=== PATIENT | female | born 1945 | race Caucasian/White ===

== ENCOUNTER 2022-10-26 18:27 | Inpatient (IN) ==
[2022-10-26] MEDS ORDERED: Iodixanol (CONTRAST) 320 MG/ML 100 ML SDV IV ONE (18:42)
[2022-10-26 19:09] LABS: Activated Partial Thrombo Time 26.6 seconds (26.0-38.0); INR 1.15 (0.88-1.18)
[2022-10-26 19:13] LABS: ABS Basophils 0.1 10^3/uL (0.0-0.1); ABS Eosinophils 0.4 10^3/uL (0.0-0.5); ABS Lymphocytes 2.4 10^3/uL (1.0-4.8); ABS Monocytes 1.2 10^3/uL (0.0-0.9); ABS Neutrophils 5.2 10^3/uL (1.5-7.6); ABS Nucleated RBC 0.01 10^3/ul; Eosinophil % 4.2 %; Hematocrit 25.1 % (35-45); Hemoglobin 7.8 g/dL (11.5-14.3); Lymphocyte % 25.7 %; Mean Corpuscular Hemoglobin 20.6 pg (27-33); Mean Corpuscular Hgb Conc 30.9 g/dL (31-36); Mean Corpuscular Volume 66.6 fL (80-97); Mean Platelet Volume 6.8 fL (7.5-11.2); Nucleated Red Blood Cells % 0.1 /100 WBC (0.0-0.4); Platelet Count 409 10^3/uL (150-450); Red Blood Count 3.76 10^6/uL (3.63-4.92); Red Cell Distribution Width 21.6 % (12-17); White Blood Count 9.3 10^3/uL (3.8-11.8)
[2022-10-26 19:28] LABS: Albumin 3.6 g/dL (3.2-5.2); Albumin/Globulin Ratio 1.1 (1-3); Calcium 8.7 mg/dL (8.6-10.3); Creatinine, Serum 1.02 mg/dL (0.51-0.95); Globulin 3.2 g/dL (2-4); HDL Cholesterol 28.6 mg/dL; Total Bilirubin 0.6 mg/dL (0.2-1.0); Total Protein 6.8 g/dL (6.4-8.9); eGFR CKD-EPI 57.4 (>60)
[2022-10-26 19:49] LABS: Anisocytosis 3+
[2022-10-26 19:50] LABS: Microcytosis 3+; Polychromasia 1+
[2022-10-26 19:52] LABS: Hypochromasia 1+
[2022-10-26] MEDS ORDERED: Pantoprazole VIAL 40 MG VIAL IV ONE (20:26)
[2022-10-26] MEDS ORDERED: Pantoprazole 80 mg in NS BAG 80 MG/250 ML BAG IV ONE (20:26)
[2022-10-26] MEDS ORDERED: Dextrose 50% Syringe 50 ml 25 GM/50 ML SYRINGE IV PUSH PRN (23:38)
[2022-10-27 06:48] LABS: Hematocrit 30.1 % (35-45); Hemoglobin 9.2 g/dL (11.5-14.3); Mean Corpuscular Hgb Conc 30.6 g/dL (31-36); Mean Corpuscular Volume 68.5 fL (80-97); Platelet Count 410 10^3/uL (150-450); Red Blood Count 4.39 10^6/uL (3.63-4.92); Red Cell Distribution Width 23.1 % (12-17); White Blood Count 8.8 10^3/uL (3.8-11.8)
[2022-10-27 06:52] LABS: Calcium 8.7 mg/dL (8.6-10.3); Creatinine, Serum 0.84 mg/dL (0.51-0.95); Magnesium 1.7 mg/dL (1.9-2.7); Potassium 3.8 mmol/L (3.5-5.0); eGFR CKD-EPI 72.4 (>60)
[2022-10-27 07:08] LABS: ABS Eosinophils 0.3 10^3/uL (0.0-0.5); ABS Lymphocytes 1.6 10^3/uL (1.0-4.8); ABS Monocytes 0.9 10^3/uL (0.0-0.9); ABS Neutrophils 5.9 10^3/uL (1.5-7.6); ABS Nucleated RBC 0.01 10^3/ul; Eosinophil % 3.6 %; Lymphocyte % 17.9 %; Nucleated Red Blood Cells % 0.1 /100 WBC (0.0-0.4)
[2022-10-27] MEDS ORDERED: LORazepam 2 mg VIAL 1 ml IV PUSH ONE (08:49)
[2022-10-27] MEDS ORDERED: Lorazepam PYXIS KEY PRN (08:49)
[2022-10-27] MEDS: Pantoprazole VIAL 40 MG VIAL IV SCH ×2 (10:43→21:53)
[2022-10-27 14:57] LABS: Hematocrit 30.9 % (35-45); Hemoglobin 9.3 g/dL (11.5-14.3); Mean Corpuscular Hemoglobin 20.4 pg (27-33); Mean Corpuscular Volume 68.1 fL (80-97); Mean Platelet Volume 6.8 fL (7.5-11.2); Platelet Count 455 10^3/uL (150-450); Red Blood Count 4.54 10^6/uL (3.63-4.92); Red Cell Distribution Width 23.3 % (12-17)
[2022-10-27] MEDS ORDERED: Magnesium Sulfate 2 gm BAG 2 GM/50 ML BAG IVPB ONE (15:28)
[2022-10-27 23:32] LABS: ABS Basophils 0.1 10^3/uL (0.0-0.1); ABS Eosinophils 0.7 10^3/uL (0.0-0.5); ABS Lymphocytes 1.8 10^3/uL (1.0-4.8); ABS Monocytes 1.1 10^3/uL (0.0-0.9); ABS Neutrophils 7.6 10^3/uL (1.5-7.6); ABS Nucleated RBC 0.01 10^3/ul; Eosinophil % 6.1 %; Hematocrit 27.5 % (35-45); Hemoglobin 8.4 g/dL (11.5-14.3); Lymphocyte % 15.7 %; Mean Corpuscular Hemoglobin 20.7 pg (27-33); Mean Corpuscular Hgb Conc 30.7 g/dL (31-36); Mean Corpuscular Volume 67.4 fL (80-97); Mean Platelet Volume 6.9 fL (7.5-11.2); Nucleated Red Blood Cells % 0.1 /100 WBC (0.0-0.4); Platelet Count 387 10^3/uL (150-450); Red Blood Count 4.08 10^6/uL (3.63-4.92); White Blood Count 11.3 10^3/uL (3.8-11.8)
[2022-10-28 06:31] LABS: ABS Lymphocytes 1.6 10^3/uL (1.0-4.8); ABS Monocytes 1.1 10^3/uL (0.0-0.9); ABS Nucleated RBC 0.01 10^3/ul; Eosinophil % 9.5 %; Hematocrit 28.8 % (35-45); Hemoglobin 8.8 g/dL (11.5-14.3); Lymphocyte % 15.1 %; Mean Corpuscular Hemoglobin 20.9 pg (27-33); Mean Corpuscular Hgb Conc 30.7 g/dL (31-36); Nucleated Red Blood Cells % 0.1 /100 WBC (0.0-0.4); Platelet Count 405 10^3/uL (150-450); Red Blood Count 4.23 10^6/uL (3.63-4.92); Red Cell Distribution Width 23.1 % (12-17); White Blood Count 10.8 10^3/uL (3.8-11.8)
[2022-10-28 06:43] LABS: Calcium 8.8 mg/dL (8.6-10.3); Creatinine, Serum 0.83 mg/dL (0.51-0.95); Potassium 3.9 mmol/L (3.5-5.0); eGFR CKD-EPI 73.5 (>60)
[2022-10-28] MEDS: Pantoprazole VIAL 40 MG VIAL IV SCH ×2 (09:11→21:09)
[2022-10-28] MEDS ORDERED: Docusate LIQ 100 MG/10 ML UDC PO PRN (18:00)
[2022-10-28 18:35] LABS: Hematocrit 28.9 % (35-45); Hemoglobin 8.8 g/dL (11.5-14.3)
[2022-10-29 05:50] LABS: ABS Basophils 0.1 10^3/uL (0.0-0.1); ABS Eosinophils 1.4 10^3/uL (0.0-0.5); ABS Lymphocytes 1.6 10^3/uL (1.0-4.8); ABS Monocytes 0.9 10^3/uL (0.0-0.9); ABS Neutrophils 6.8 10^3/uL (1.5-7.6); ABS Nucleated RBC 0.01 10^3/ul; Eosinophil % 12.9 %; Hemoglobin 8.7 g/dL (11.5-14.3); Lymphocyte % 15.2 %; Mean Corpuscular Hemoglobin 20.9 pg (27-33); Mean Corpuscular Hgb Conc 30.9 g/dL (31-36); Mean Corpuscular Volume 67.8 fL (80-97); Mean Platelet Volume 7.4 fL (7.5-11.2); Nucleated Red Blood Cells % 0.1 /100 WBC (0.0-0.4); Platelet Count 395 10^3/uL (150-450); Red Blood Count 4.13 10^6/uL (3.63-4.92); Red Cell Distribution Width 23.5 % (12-17); White Blood Count 10.7 10^3/uL (3.8-11.8)
[2022-10-29] MEDS: Pantoprazole VIAL 40 MG VIAL IV SCH (09:03)
[2022-10-29 15:12] VITALS: BP 118/37
== END 2022-10-29 15:46 | disposition home or self-care (01) | DRG 65 ==
LOC: EDHOLD 18:27 → ED 18:27 → SUATTDRO 20:56 → MEDTELE 23:53
PROVIDERS: ADMIT Internal Medicine; ATTEND Internal Medicine

== ENCOUNTER 2023-10-07 15:47 | Inpatient (IN) ==
[2023-10-07 16:22] LABS: Hematocrit 24.9 % (35-45); Hemoglobin 7.2 g/dL (11.5-14.3); Mean Corpuscular Hemoglobin 18.1 pg (27-33); Mean Corpuscular Hgb Conc 28.7 g/dL (31-36); Mean Corpuscular Volume 63.1 fL (80-97); Mean Platelet Volume 8.4 fL (7.5-11.2); Platelet Count 407 10^3/uL (150-450); Red Blood Count 3.96 10^6/uL (3.63-4.92); Red Cell Distribution Width 21.7 % (12-17); White Blood Count 13.1 10^3/uL (3.8-11.8)
[2023-10-07 16:32] LABS: INR 1.4 (0.83-1.13)
[2023-10-07 16:47] LABS: Albumin 3.7 g/dL (3.2-5.2); Albumin/Globulin Ratio 1.4 (1-3); C Reactive Protein 22.58 mg/L (<8.01); Calcium 8.8 mg/dL (8.6-10.3); Creatinine, Serum 1.73 mg/dL (0.51-0.95); Globulin 2.6 g/dL (2-4); Potassium 5.4 mmol/L (3.5-5.0); Total Bilirubin 1.5 mg/dL (0.2-1.0); Total Protein 6.3 g/dL (6.4-8.9); eGFR CKD-EPI 30.2 (>60)
[2023-10-07 17:11] LABS: ABS Basophils 0.1 10^3/uL (0.0-0.1); ABS Monocytes 0.8 10^3/uL (0.0-0.9); ABS Neutrophils 11.3 10^3/uL (1.5-7.6); ABS Nucleated RBC 0.04 10^3/ul; Acanthocytes 1+; Anisocytosis 2+; Hypochromasia 1+; Lymphocyte % 7.5 %; Microcytosis 3+; Nucleated Red Blood Cells % 0.3 %/100WBC (0.0-0.8); Polychromasia 1+
[2023-10-07] MEDS: Lactated Ringers 1000 ml BAG 1,000 ML IV ONE (17:14)
[2023-10-07 17:41] LABS: High Sensitivity Troponin 1 Hr 87 pg/mL (<15)
[2023-10-07 17:44] LABS: PCO2 Arterial 26 mmHg (35-45); PO2 Arterial 115 mmHg (80-100)
[2023-10-07] MEDS: Piperacillin/Tazobac 3.375 BAG 3.375 GM/100 ML BAG IV ONE (18:48)
[2023-10-07] MEDS: Vancomycin 1,000 MG in NS 0.9% 250 ml 250 ML IVPB ONE (19:14)
[2023-10-07 19:32] LABS: Urine Appearance Turbid; Urine Bacteria 3+ /HPF (Absent); Urine Bilirubin Negative (Negative); Urine Blood 1+ (Negative); Urine Color Yellow; Urine Glucose 4+ (>=1000 mg/dL) (Negative); Urine Ketones Negative (Negative); Urine Nitrite 1+ (Negative); Urine Protein 1+ (>=30 mg/dL) (Negative); Urine Red Blood Cell 3+(>10/hpf) /HPF (0-Trace); Urine Squamous Epithelial Cell Present /HPF (Absent); Urine Urobilinogen Negative (Negative); Urine White Blood Cell 3+(>20/hpf) /HPF (0-Trace); Urine pH 5.5 (5.0-8.0)
[2023-10-07] MEDS: Iodixanol (CONTRAST) 320 MG/ML 100 ML SDV IV ONE (19:55)
[2023-10-07] MEDS ORDERED: Dextrose 50% Syringe 50 ml 25 GM/50 ML SYRINGE IV PUSH PRN ×2 (20:58→22:16)
[2023-10-07] MEDS: Heparin 5000 UNITS/ML 1 mL VIAL IV SCH (21:01)
[2023-10-07] MEDS: Heparin DRIP 25,000 UNITS BAG 25,000 UNITS/250 ML BAG IV SCH (21:03)
[2023-10-07 21:32] LABS: Glucose Confirmatory 414 mg/dL (70-100)
[2023-10-07] MEDS: Insulin GLARGINE 100 un/ml 10 ml VIAL SUBCUT ONE ×2 (21:48→23:19)
[2023-10-07] MEDS: Pantoprazole VIAL 40 MG VIAL IV ONE (21:48)
[2023-10-07] MEDS ORDERED: Pantoprazole VIAL 40 MG VIAL ONE (21:50)
[2023-10-07] MEDS: Pantoprazole 80 mg in NS BAG 80 MG/250 ML BAG IV SCH (21:55)
[2023-10-07] MEDS ORDERED: Al Hydrox/Mg Hydrox/Simet LIQ 30 ML UDC PO PRN (22:19)
[2023-10-07] MEDS: cefTRIAXone 1 gm/50 mL D5W 1 GM/50 ML BAG IV SCH (23:20)
[2023-10-08] MEDS: NS 0.9% 500 ml BAG 500 ML IV ONE (03:52)
[2023-10-08] MEDS: NS 0.9% 1000 ml BAG 1,000 ML IV SCH (04:26)
[2023-10-08 05:09] LABS: ABS Basophils 0.1 10^3/uL (0.0-0.1); ABS Eosinophils 0.1 10^3/uL (0.0-0.5); ABS Lymphocytes 2.1 10^3/uL (1.0-4.8); ABS Monocytes 1.3 10^3/uL (0.0-0.9); ABS Neutrophils 11.5 10^3/uL (1.5-7.6); ABS Nucleated RBC 0.11 10^3/ul; Eosinophil % 0.5 %; Hematocrit 24.5 % (35-45); Hemoglobin 7.2 g/dL (11.5-14.3); Lymphocyte % 14.1 %; Mean Corpuscular Hemoglobin 18.8 pg (27-33); Mean Corpuscular Hgb Conc 29.4 g/dL (31-36); Mean Corpuscular Volume 63.8 fL (80-97); Mean Platelet Volume 8.4 fL (7.5-11.2); Nucleated Red Blood Cells % 0.7 %/100WBC (0.0-0.8); Platelet Count 344 10^3/uL (150-450); Red Blood Count 3.85 10^6/uL (3.63-4.92); Red Cell Distribution Width 22.8 % (12-17); White Blood Count 15.1 10^3/uL (3.8-11.8)
[2023-10-08] MEDS: Nystatin TOP POWDER 15 GM BTL TOPICAL SCH (09:25)
[2023-10-08] MEDS ORDERED: Sulfur Hexaflouride MICROSPHR 25 MG VIAL ONE ×2 (10:33→12:42)
[2023-10-08 11:49] LABS: Anion Gap 10 mmol/L (2-16); Blood Urea Nitrogen 26 mg/dL (6-24); CO2 Carbon Dioxide 21 mmol/L (22-32); Calcium 7.9 mg/dL (8.6-10.3); Chloride 104 mmol/L (101-111); Glucose 150 mg/dL (70-100); Potassium 4.1 mmol/L (3.5-5.0); Sodium 135 mmol/L (135-145)
[2023-10-08] MEDS: Sulfur Hexaflouride MICROSPHR 25 MG VIAL IV ONE (12:27)
[2023-10-08 12:29] LABS: % Iron Saturation 6 % (15-55); .Transferrin 259 mg/dL (203-362); Iron < 20 ug/dL (50-212); Total Iron Binding Capacity 363 mcg/dL (250-450); Unsaturated Iron Binding 343 ug/dL
[2023-10-08 12:58] LABS: TSH Ultra Thyroid Stim Horm 1.53 mcIU/mL (0.34-5.60)
[2023-10-08] MEDS: Metoclopramide LIQUID 1 mg/ml 10 ml ORAL.SOLN (10 mg) PO SCH (13:49)
[2023-10-08] MEDS: Ferric Gluconate IV 250 MG in NS 0.9% 250 ml 200 ML IVPB SCH (19:28)
[2023-10-08] MEDS: Insulin GLARGINE 100 un/ml 10 ml VIAL SUBCUT SCH (20:41)
[2023-10-08 21:33] LABS: CRP High Sensitivity 21.62 mg/L (<2.00)
[2023-10-09 05:53] LABS: ABS Basophils 0.1 10^3/uL (0.0-0.1); ABS Eosinophils 0.6 10^3/uL (0.0-0.5); ABS Lymphocytes 1.9 10^3/uL (1.0-4.8); ABS Monocytes 1.3 10^3/uL (0.0-0.9); ABS Nucleated RBC 0.07 10^3/ul; Hematocrit 26.2 % (35-45); Hemoglobin 7.7 g/dL (11.5-14.3); Lymphocyte % 13.8 %; Mean Corpuscular Hemoglobin 19.1 pg (27-33); Mean Corpuscular Hgb Conc 29.4 g/dL (31-36); Mean Corpuscular Volume 64.9 fL (80-97); Mean Platelet Volume 8.3 fL (7.5-11.2); Nucleated Red Blood Cells % 0.5 %/100WBC (0.0-0.8); Platelet Count 298 10^3/uL (150-450); Red Blood Count 4.03 10^6/uL (3.63-4.92); Red Cell Distribution Width 23.5 % (12-17); White Blood Count 13.9 10^3/uL (3.8-11.8)
[2023-10-09 06:12] LABS: Calcium 8.2 mg/dL (8.6-10.3); Creatinine, Serum 1.29 mg/dL (0.51-0.95); Magnesium 1.8 mg/dL (1.9-2.7); Potassium 4.5 mmol/L (3.5-5.0)
[2023-10-09] MEDS: Magnesium Sulfate 2 gm BAG 2 GM/50 ML BAG IVPB ONE (09:45)
[2023-10-10 06:59] LABS: Calcium 8.2 mg/dL (8.6-10.3); Creatinine, Serum 1.05 mg/dL (0.51-0.95); Potassium 4.3 mmol/L (3.5-5.0); eGFR CKD-EPI 55.1 (>60)
[2023-10-10] MEDS: Iodixanol (CONTRAST) 320 MG/ML 100 ML SDV IV ONE (15:13)
[2023-10-10] MEDS: NS 0.9% 1000 ml BAG 1,000 ML IV SCH (16:19)
[2023-10-11 05:57] LABS: Calcium 8.8 mg/dL (8.6-10.3); Creatinine, Serum 0.93 mg/dL (0.51-0.95); Magnesium 1.9 mg/dL (1.9-2.7); Potassium 4.4 mmol/L (3.5-5.0); eGFR CKD-EPI 63.7 (>60)
[2023-10-11 06:14] LABS: ABS Basophils 0.1 10^3/uL (0.0-0.1); ABS Eosinophils 0.8 10^3/uL (0.0-0.5); ABS Lymphocytes 2.4 10^3/uL (1.0-4.8); ABS Monocytes 1.2 10^3/uL (0.0-0.9); ABS Nucleated RBC 0.05 10^3/ul; Eosinophil % 6.8 %; Hematocrit 25.3 % (35-45); Hemoglobin 7.7 g/dL (11.5-14.3); Mean Corpuscular Hemoglobin 19.8 pg (27-33); Mean Corpuscular Hgb Conc 30.3 g/dL (31-36); Mean Corpuscular Volume 65.3 fL (80-97); Mean Platelet Volume 8.5 fL (7.5-11.2); Nucleated Red Blood Cells % 0.4 %/100WBC (0.0-0.8); Platelet Count 402 10^3/uL (150-450); Red Blood Count 3.88 10^6/uL (3.63-4.92); Red Cell Distribution Width 23.8 % (12-17); White Blood Count 12.5 10^3/uL (3.8-11.8)
[2023-10-11] MEDS: Polyethylene Glycol 3350 17 GM PACKET PO PRN (12:28)
[2023-10-12 06:00] LABS: ABS Basophils 0.1 10^3/uL (0.0-0.1); ABS Eosinophils 0.8 10^3/uL (0.0-0.5); ABS Lymphocytes 1.8 10^3/uL (1.0-4.8); ABS Neutrophils 6.5 10^3/uL (1.5-7.6); ABS Nucleated RBC 0.03 10^3/ul; Hematocrit 29.1 % (35-45); Hemoglobin 8.5 g/dL (11.5-14.3); Mean Corpuscular Hemoglobin 19.7 pg (27-33); Mean Corpuscular Hgb Conc 29.1 g/dL (31-36); Mean Corpuscular Volume 67.7 fL (80-97); Mean Platelet Volume 8.3 fL (7.5-11.2); Nucleated Red Blood Cells % 0.3 %/100WBC (0.0-0.8); Platelet Count 418 10^3/uL (150-450); Red Cell Distribution Width 23.7 % (12-17); White Blood Count 10.3 10^3/uL (3.8-11.8)
[2023-10-12 06:26] LABS: Calcium 8.7 mg/dL (8.6-10.3); Creatinine, Serum 0.88 mg/dL (0.51-0.95); Magnesium 1.8 mg/dL (1.9-2.7); Potassium 4.8 mmol/L (3.5-5.0); eGFR CKD-EPI 68.1 (>60)
[2023-10-12] MEDS: Magnesium Sulfate 2 gm BAG 2 GM/50 ML BAG IVPB ONE (09:36)
[2023-10-12] MEDS ORDERED: Polyethylene Glycol 3350 17 GM PACKET PO PRN (12:43)
[2023-10-12] MEDS ORDERED: Senna TAB 8.6 mg TAB PO PRN (12:43)
[2023-10-12] MEDS ORDERED: Magnesium Hydroxide LIQ 30 ML UDC PO PRN (12:43)
[2023-10-12] MEDS: Senna TAB 8.6 mg TAB PO SCH (20:52)
[2023-10-12] MEDS: Magnesium Hydroxide LIQ 30 ML UDC PO SCH (20:52)
[2023-10-13 10:39] LABS: Hematocrit 29.6 % (35-45); Hemoglobin 8.7 g/dL (11.5-14.3); Mean Corpuscular Hemoglobin 20.4 pg (27-33); Mean Corpuscular Hgb Conc 29.5 g/dL (31-36); Mean Platelet Volume 8.4 fL (7.5-11.2); Platelet Count 420 10^3/uL (150-450); Red Blood Count 4.29 10^6/uL (3.63-4.92); Red Cell Distribution Width 24.7 % (12-17); White Blood Count 10.1 10^3/uL (3.8-11.8)
[2023-10-13 11:06] LABS: Anion Gap 7 mmol/L (2-16); Blood Urea Nitrogen 11 mg/dL (6-24); CO2 Carbon Dioxide 26 mmol/L (22-32); Calcium 8.9 mg/dL (8.6-10.3); Chloride 105 mmol/L (101-111); Creatinine, Serum 0.89 mg/dL (0.51-0.95); Glucose 132 mg/dL (70-100); Sodium 138 mmol/L (135-145); eGFR CKD-EPI 67.1 (>60)
[2023-10-13 11:10] LABS: Potassium, Whole Blood 5.1 mmol/L (3.4-4.5)
[2023-10-13 11:29] LABS: ABS Basophils 0.1 10^3/uL (0.0-0.1); ABS Eosinophils 0.6 10^3/uL (0.0-0.5); ABS Lymphocytes 1.4 10^3/uL (1.0-4.8); ABS Monocytes 0.8 10^3/uL (0.0-0.9); ABS Neutrophils 7.1 10^3/uL (1.5-7.6); ABS Nucleated RBC 0.04 10^3/ul; Acanthocytes 1+; Hypochromasia 2+; Lymphocyte % 13.7 %; Microcytosis 1+; Nucleated Red Blood Cells % 0.4 %/100WBC (0.0-0.8); Polychromasia 2+
[2023-10-13] MEDS ORDERED: Levalbuterol HFA INHALER MDI INH PRN (12:05)
[2023-10-14 06:40] LABS: Calcium 8.8 mg/dL (8.6-10.3); Creatinine, Serum 0.88 mg/dL (0.51-0.95); Potassium 4.7 mmol/L (3.5-5.0); eGFR CKD-EPI 68.1 (>60)
[2023-10-14] MEDS ORDERED: Magnesium Hydroxide LIQ 30 ML UDC PO PRN (11:41)
[2023-10-15] MEDS ORDERED: Dextrose 50% Syringe 50 ml 25 GM/50 ML SYRINGE IV PUSH PRN (16:52)
[2023-10-15] MEDS: Insulin GLARGINE 100 un/ml 10 ml VIAL SUBCUT SCH (22:04)
[2023-10-16 06:09] LABS: Creatinine, Serum 0.77 mg/dL (0.51-0.95); Magnesium 1.8 mg/dL (1.9-2.7); Potassium 4.3 mmol/L (3.5-5.0); eGFR CKD-EPI 79.9 (>60)
[2023-10-16 08:22] LABS: ABS Basophils 0.1 10^3/uL (0.0-0.1); ABS Eosinophils 0.7 10^3/uL (0.0-0.5); ABS Lymphocytes 1.8 10^3/uL (1.0-4.8); ABS Monocytes 0.8 10^3/uL (0.0-0.9); ABS Neutrophils 4.4 10^3/uL (1.5-7.6); Anisocytosis 3+; Eosinophil % 8.7 %; Hemoglobin 9.4 g/dL (11.5-14.3); Hypochromasia 2+; Lymphocyte % 23.1 %; Mean Corpuscular Hemoglobin 21.3 pg (27-33); Mean Corpuscular Hgb Conc 30.4 g/dL (31-36); Mean Corpuscular Volume 70.1 fL (80-97); Mean Platelet Volume 8.2 fL (7.5-11.2); Microcytosis 2+; Platelet Count 388 10^3/uL (150-450); Polychromasia 1+; Red Blood Count 4.42 10^6/uL (3.63-4.92); Red Cell Distribution Width 32.1 % (12-17); White Blood Count 7.8 10^3/uL (3.8-11.8)
[2023-10-16] MEDS: Magnesium Sulfate 2 gm BAG 2 GM/50 ML BAG IVPB ONE (09:01)
[2023-10-16] MEDS ORDERED: Enoxaparin 100 MG/ML SYR SUBCUT SCH (13:00)
[2023-10-16] MEDS ORDERED: Lansoprazole SUSP ORALSYR 3 MG/ML PO SCH (15:00)
[2023-10-16] MEDS: Lansoprazole SUSP ORALSYR 3 MG/ML PO SCH (17:06)
[2023-10-16] MEDS: Enoxaparin 100 MG/ML SYR SUBCUT SCH (20:21)
[2023-10-17 08:20] LABS: Hematocrit 30.2 % (35-45); Hemoglobin 9.3 g/dL (11.5-14.3); Mean Corpuscular Hemoglobin 21.8 pg (27-33); Mean Corpuscular Hgb Conc 30.9 g/dL (31-36); Mean Corpuscular Volume 70.5 fL (80-97); Mean Platelet Volume 8.2 fL (7.5-11.2); Platelet Count 348 10^3/uL (150-450); Red Blood Count 4.28 10^6/uL (3.63-4.92); Red Cell Distribution Width 34.4 % (12-17); White Blood Count 6.3 10^3/uL (3.8-11.8)
[2023-10-17 08:25] LABS: INR 1.26 (0.83-1.13)
[2023-10-17 08:32] LABS: Anion Gap 7 mmol/L (2-16); Blood Urea Nitrogen 11 mg/dL (6-24); CO2 Carbon Dioxide 31 mmol/L (22-32); Chloride 104 mmol/L (101-111); Creatinine, Serum 0.79 mg/dL (0.51-0.95); Glucose 73 mg/dL (70-100); Potassium 4.1 mmol/L (3.5-5.0); Sodium 142 mmol/L (135-145); eGFR CKD-EPI 77.5 (>60)
[2023-10-17 08:57] LABS: Folate 11.89 ng/mL (5.90-24.80)
[2023-10-17 08:58] LABS: Vitamin B12 > 1450 pg/mL (180-914)
[2023-10-17 10:27] VITALS: BP 110/55
[2023-10-19 12:33] LABS: Tissue Transglutaminase IgA Ab <1.2 U/mL
[2023-10-19 23:49] LABS: Immunoglobulin A 300 mg/dL (61 - 356)
== END 2023-10-17 11:52 | disposition home health service (06) | DRG 175 ==
LOC: ED 15:47 → EDHOLD 21:29 → SUATTDRO 21:29 → ICU 23:20 → MEDTELE 10-08 11:00
PROVIDERS: ADMIT Internal Medicine; ATTEND Hospitalist